=== PATIENT | female | born 1945 | race Caucasian/White ===

== ENCOUNTER 2017-04-03 06:33 | Inpatient (IN) | payer MEDICARE, OTHER ==
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
[2017-04-03] MEDS ORDERED: MORPHINE SULFATE 2 MG/ML DISP.SYRIN IV ONE (06:54)
[2017-04-03] MEDS ORDERED: MORPHINE SULFATE 2 MG/ML DISP.SYRIN ONE (07:01)
[2017-04-03] MEDS ORDERED: ceFAZolin SODIUM 1 GM VIAL IV PRN (09:07)
--- NOTE | 2017-04-03 09:16 | CONS ---
[facility] - General Date of Service: 04/03/17 Narrative: Mrs. Lopez is a 71-year-old female who was getting off the couch when she stumbled and fell resulting in an injury to her left hip. She was seen at an outside emergency department and transferred to her hospital for further care secondary to the lack of orthopedic coverage at the outside hospital. She is found to have a displaced comminuted left proximal femur fracture. She lives with her and is otherwise active and healthy community ambulator. She has a history of a right femoral neck fracture treated with percutaneous screw fixation for which she did well. She denies any other areas of pain. She denies any family or personal history of problems with anesthesia or blood clots. Source: patient Exam Limitations: no limitations - History of Present Illness Timing/Duration: 4-6 hours Severity: moderate Modifying Factors - (Worsens): Reports: movement Modifying Factors - (Improves): Reports: immobilization, medication Associated Symptoms: denies symptoms Allergies/Adverse Reactions: Allergies Sulfa (Sulfonamide Antibiotics) Allergy (Intermediate, Verified 04/03/17 06:58) Hives strawberry Adverse Reaction (Severe, Verified 04/03/17 06:58) Hives Home Medications: Home Medications Medication Instructions Recorded Last Taken ALPRAZolam [Xanax] 0.5 mg PO BID PRN 04/03/17 Unknown Aspirin [Aspir-Low] 81 mg PO DAILY 04/03/17 Unknown Gabapentin [Neurontin] 400 mg PO TID 04/03/17 Unknown Lisinopril [Zestril] 30 mg PO DAILY 04/03/17 Unknown Metoprolol Succinate [Toprol Xl] 50 mg PO DAILY 04/03/17 Unknown Simvastatin 20 mg PO DAILY 04/03/17 Unknown metFORMIN HCL [Metformin HCl ER] 1,000 mg PO BID 04/03/17 Unknown - Patient's Past Medical History Patient History - Medical: Diabetes Type 2, Renal Failure Patient History - Cardiac/Respiratory: Hypertension, Hyperlipidemia Patient History - Cancer: No Hx of Cancer Patient History - Surgical Procedures: Total Hip Replacement, Hernia Repair Patient History - Other: None - Family History Family History:: no untoward family reactions to anesthesia, no family history of clotting disorders - Social History Living Situations: home Psych History: Hx of Anxiety Smoking Status: Never smoker Have you smoked in the past 12 months: No Do you dip or chew tobacco: No Alcohol Use: none Drug Use: none - Immunizations Immunizations Up to Date: Yes History of Influenza Vaccine: Yes Review of Systems - Review of Systems Narrative: Negative except for above Physical Examination - Exam Narrative: She is alert and oriented 3. Normocephalic atraumatic Left lower extremity: No lacerations, ecchymosis, or abrasions over the hip. Her hip is flexed on a pillow and has pain with any hip range of motion. She has no pain with knee or ankle palpation or gentle range of motion. She does report chronic peripheral neuropathy secondary to diabetes and has decreased sensation to her foot. Palpable dorsalis pedis pulse. Vital Signs: Vital Signs - Last Taken Temp 36.7 C 04/03/17 06:47 Pulse 85 04/03/17 07:37 Resp 17 04/03/17 07:37 BP 135/70 04/03/17 07:37 Pulse Ox 96 04/03/17 07:37 O2 Oxygen Delivery Method Room Air - Results and Findings: Narrative: Outside pelvis and hip films from [facility] scanned into our computer: Comminuted peritrochanteric left femur fracture with displacement. Right hip with 3 partially threaded screws. No other signs of fracture about the hip or pelvis - Assessments/Findings (1) Fracture, proximal femur Diagnosis(s): We discussed the risks and benefits of surgery. The plan is for open versus closed reduction and several medullary fixation of the left femur. She'll need 6 weeks of postoperative DVT prophylaxis. Most likely she will be partial weightbearing and S1 in a walker for ambulation. She will receive IV Ancef preoperatively. Guerrero catheter was placed preoperatively. Problem: Acute Qualifiers: Encounter type: initial encounter Fracture type: closed Laterality: left Qualified Code(s): S72.002A - Fracture of unspecified part of neck of left femur, initial encounter for closed fracture
[2017-04-03] MEDS: MORPHINE SULFATE 4 MG/ML SYRG IV PRN (09:34)
--- NOTE | 2017-04-03 10:16 | HP ---
Chief Complaint - Chief Complaint Date of Service: 04/03/17 Time of Service: 09:00 Chief Complaint: Left Hip Pain History of Present Illness: Raquel is a 71 yo female with controlled diabetes mellitus Type II and chronic kidney disease stage III. She reports falling after getting out of the chair too quickly this morning and was unaware that her leg had "fallen asleep" . She fell and subsequently had left hip pain. She was evaluated at [facility] and found to have a left hip fracture. She had bloodwork, which I have reviewed, showing no significant abnormalities. Creatinine is 1.1. She reports only left hip pain. She has no other symptoms or concerns. She reports prior to this injury she had no medical concerns. She reports only recently medical problem with hernia surgery in October. She has not had problems with anesthesia. - Patient's Past Medical History Patient History - Medical: Diabetes Type 2, Renal Failure - CKD III Patient History - Cardiac/Respiratory: Hypertension, Hyperlipidemia Patient History - Cancer: No Hx of Cancer Patient History - Surgical Procedures: Total Hip Replacement - Right, Hernia Repair Patient History - Other: None - Family History Family History:: no untoward family reactions to anesthesia, no family history of clotting disorders - Social History Living Situations: spouse Abuse History: No History of abuse Psych History: Hx of Anxiety Smoking Status: Former smoker Have you smoked in the past 12 months: No Do you dip or chew tobacco: No Patient requests Smoking Cessation Consult: No Initiate information on Smoking Cessation: No Alcohol Use: none Drug Use: none - Immunizations Immunizations Up to Date: Yes History of Influenza Vaccine: Yes Review Of Systems (GEN) - Review of Systems Generalized/Overall Review: Present: No Symptoms Reported EENTM: Present: No Symptoms Reported Respiratory: Present: No Symptoms Reported Cardiac: Present: No Symptoms Reported Abdominal: Present: No Symptoms Reported Genitourinary: Present: No Symptoms Reported Musculoskeletal: Present: Joint Pain - Left Hip Pain Neurological: Present: No Symptoms Reported Skin: Present: No Symptoms Reported Immunizations: IMMUNIZATION HX Immunizations Up to Date Yes History of Influenza Vaccine Yes Allergies/Adverse Reactions: Allergies Allergy/AdvReac Type Severity Reaction Status Date / Time Sulfa (Sulfonamide Allergy Intermediate Hives Verified 04/03/17 09:39 Antibiotics) strawberry AdvReac Severe Hives Verified 04/03/17 09:39 Home Medications: HOME MEDICATIONS ALPRAZolam [Xanax] 0.5 mg PO BID PRN 04/03/17 [Last Taken Unknown] Aspirin [Aspir-Low] 81 mg PO DAILY 04/03/17 [Last Taken Unknown] Gabapentin [Neurontin] 400 mg PO TID 04/03/17 [Last Taken Unknown] Lisinopril [Zestril] 30 mg PO DAILY 04/03/17 [Last Taken Unknown] Metoprolol Succinate [Toprol Xl] 50 mg PO DAILY 04/03/17 [Last Taken 04/02/17 08 :00] Simvastatin 20 mg PO DAILY 04/03/17 [Last Taken Unknown] metFORMIN HCL [Metformin HCl ER] 1,000 mg PO BID 04/03/17 [Last Taken Unknown] Exam - Exam Vital Signs: Vital Signs - Last Taken Temp 36.6 C 04/03/17 09:41 Pulse 75 04/03/17 09:41 Resp 18 04/03/17 09:41 BP 157/85 04/03/17 09:41 Pulse Ox 94 04/03/17 09:41 Constitutional: Present: Alert, Oriented x3, Cooperative ENT Exam: Present: hearing grossly normal Eye Exam: bilateral eye: normal inspection Respiratory: Present: lungs clear, normal breath sounds Cardiovascular/Chest: Present: regular rate, rhythm, no murmur Abdomen: Present: Normal bowel sounds, soft, nontender, nondistended Skin Exam: Present: normal color, warm/dry, no cyanosis Appearance: Present: appropriate appearance, appropriate insight Eye contact: Present: cooperative, good eye contact, normal speech Thoughts: Present: normal thought pattern, no apparent hallucination Assessment/Plan - Narrative Narrative: Raquel is a 71 yo female admitted with Left hip fracture. Orthopedics have been consulted and plan for surgery today. Bloodwork reviewed shows no significant concerns. Will evaluate with ECG due to fall and pre op clearance. ECG was obtained and shows no acute concerns. Patient is medically cleared for surgery. Revised cardiac risk index evaluation gives <0.4% risk of cardiovascular event with surgery. Will follow along medically. - Assessment/Plan (1) Fracture of left hip Problem: Acute Qualifiers: Encounter type: initial encounter Fracture type: closed Qualified Code(s) : S72.002A - Fracture of unspecified part of neck of left femur, initial encounter for closed fracture (2) CKD (chronic kidney disease) stage 3, GFR 30-59 ml/min Problem: Acute (3) Diabetes mellitus type 2 in nonobese Problem: Acute
[2017-04-03] MEDS: RINGER'S SOLUTION,LACTATED 1,000 ML IV PRN ×3 (10:21→20:17)
[2017-04-03] MEDS ORDERED: METOPROLOL SUCCINATE 50 MG TABLET.SA PO ONE (10:42)
[2017-04-03] MEDS ORDERED: RINGER'S SOLUTION,LACTATED 1,000 ML IV ONE ×2 (11:20→12:40)
[2017-04-03] MEDS ORDERED: diphenhydrAMINE HCL 50 MG/ML VIAL IV PRN (12:50)
[2017-04-03] MEDS ORDERED: PROMETHAZINE HCL 5 MG in DEXTROSE 5 % IN WATER 50 ML IV PRN ×2 (12:50)
[2017-04-03] MEDS ORDERED: ONDANSETRON HCL/PF 2 MG/ML VIAL IV PRN (12:50)
[2017-04-03] MEDS ORDERED: MAG HYDROX/ALUMINUM HYD/SIMETH 30 ML UDC PO PRN (12:50)
[2017-04-03] MEDS ORDERED: ZOLPIDEM TARTRATE 5 MG TABLET PO PRN (12:50)
[2017-04-03] MEDS ORDERED: MAGNESIUM HYDROXIDE 30 ML UDC PO PRN (12:50)
--- NOTE | 2017-04-03 12:55 | OR ---
Operative Report - Dictated Report Narrative: Date: 04/03/2017 Surgeon: Chava Wilson M.D. Break Out Worker: Too Brock PA-C Preoperative diagnosis: Closed left aureliano-trochanteric femur fracture Postoperative diagnosis: Closed left aureliano-trochanteric femur fracture Operations and procedures: 1. Closed reduction, cephalo-medullary fixation left aureliano-trochanteric femur fracture 2. Intraoperative interpretation of radiographs Anesthesia: Spinal Specimens: None Estimated blood loss: 150 Milliliters Retained implants: [employer] Trigen InterTAN 130 degree size 10 mm by 36 centimeter nail with 90 millimeter lag screw and 85 millimeter compression screw , with distal locking screws Complications: None Indications for procedure: Mrs. Lopez is a 71-year-old female who injured the left leg after ground- level fall at home. They were admitted to the hospital after being evaluated in the emergency department. Once the medical provider felt that they were stable for surgical treatment, the risks and benefits alternatives were discussed. The risks of , blood clots, bleeding, infection, nerve/tendon/ blood vessel injury, malunion, nonunion, failure of implants, painful implants, arthrosis, and need for additional procedures were discussed. The extremity was marked and consent was obtained on the floor. Procedure: After marking the operative extremity on the floor, the patient was taken to the operating room. A timeout was performed. IV antibiotics consisting of Ancef were administered. A spinal anesthetic was induced by anesthesia, and the patient was then placed onto a fracture table with a well-padded perineal post. The nonoperative leg was placed in a well-padded traction boot in slight extension without any traction with an SCD on the leg. The operative leg was placed in a well-padded traction boot. Longitudinal traction, internal rotation , and flexion were utilized in order to reduce the fracture. Preliminary images were attained utilizing C-arm in both the AP and lateral views. This confirmed that we had obtained adequate visualization of the fracture as well as reduction. Next the hip was then prepped and draped in a standard sterile fashion. Next the guidewire was placed percutaneously proximal to the greater trochanter to brennon a starting point at the tip of the greater trochanter centered on the lateral view. This was passed down to the level below the lesser trochanter. A scalpel was utilized in order to dissect down to the greater trochanter in order to place the soft tissue protector down to bone. The entry drill was then placed down the proximal femur to the level of the lesser trochanter. A ball spike pusher was utilized in order to hold the greater trochanter as there is a longitudinal split down the intertrochanteric line as well as a subtrochanteric fracture. Next guidewire was placed into the distal femur confirming this on AP and lateral views with the C-arm. A series of reamers up to 11 was utilized with good chatter while holding the fracture reduced. The proper size nail was then selected and impacted into place. The outrigger was utilized in order to confirm the appropriate depth of the nail. Using the alignment device on the outrigger, a keyonna incision was made over the lateral femur. Sharp dissection was carried through the iliotibial band down to the proximal femur. The ball split pusher was used again in order to hold and maintain the lateral cortical fragment in the subtrochanteric region. The guidewire was was placed into the femoral head in a center-center position on AP and lateral views. The tip-apex distance of less than 25 mm combined was obtained. Once we felt that we had placed a guidewire in the appropriate position, it was measured. Next the compression screw site was drilled through the lateral femoral cortex. This was then drilled down to the appropriate depth , again confirming that we are within the confines the bone. The derotational bar was then placed and the lag screw was drilled. The lag screw was then secured in place seating fully ensuring that we were within the confines of the bone. The compression screw was then inserted allowing for compression while releasing the traction on the leg. This stabilized and reduced the subtrochanteric lateral cortical fragment. Using C- arm this was visualized to allow for compression across the fracture site. Once is felt that we had adequately stabilized the aureliano-trochanteric fracture, the distal interlocking screws were placed in a dynamic position. Using C-arm for placement. They were confirmed to be the appropriate length and within the nail on both AP and lateral views. The nail was secured in a static position and the outrigger was removed. The wounds were then thoroughly irrigated. Final images were obtained. The hip was placed through range of motion and showed no crepitance. The deep fascia was closed with 0 Vicryl, the subcutaneous tissue with 3-0 Vicryl, and the skin was closed with valerio. Sterile dressings of Xeroform, 4 x 4, ABD, and tape were applied. All sponge, sharp, and instrument counts were correct prior to closing the wounds. The patient was then awoken and transferred to the postanesthesia care unit in stable condition.
[2017-04-03] MEDS: ceFAZolin SODIUM 1 GM in DEXTROSE 5 % IN WATER 100 ML IV SCH ×4 (15:41→20:18)
[2017-04-03] MEDS: oxyCODONE HCL/ACETAMINOPHEN 1 TAB TABLET PO PRN (16:44)
[2017-04-03 17:14] LABS: Prothrombin Time (Patient) 11.3 Seconds (9.4-11.4)
[2017-04-03 17:16] LABS: INR 1.09 INR (0.90-1.10)
[2017-04-03] MEDS: WARFARIN SODIUM 5 MG TABLET PO SCH (17:26)
[2017-04-03] MEDS: INSULIN LISPRO 100 UNITS/ML VIAL SC SCH (17:50)
[2017-04-03] MEDS: HYDROmorphone HCL 1 MG/ML DISP.SYRIN IV PRN ×2 (18:32→21:13)
[2017-04-03] MEDS: SENNOSIDES/DOCUSATE SODIUM 1 TAB TABLET PO SCH (20:18)
[2017-04-04] MEDS: oxyCODONE HCL/ACETAMINOPHEN 1 TAB TABLET PO PRN ×2 (00:07→05:14)
[2017-04-04] MEDS: HYDROmorphone HCL 1 MG/ML DISP.SYRIN IV PRN ×2 (01:41→10:58)
[2017-04-04] MEDS: ceFAZolin SODIUM 1 GM in DEXTROSE 5 % IN WATER 100 ML IV SCH ×2 (02:02)
[2017-04-04] MEDS: MORPHINE SULFATE 4 MG/ML SYRG IV PRN ×2 (03:36→06:31)
[2017-04-04 06:00] LABS: Mean Cell Volume 99.1 fl (78-100); Mean Corpuscular Hemoglobin 31.7 pg (27-31); Mean Platelet Volume 9.6 fl (6.0-9.5); Platelet Count 193 K/mm3 (150-450); Red Blood Count 2.24 M/mm3 (4.2-5.4); Red Cell Distribution Width 12.6 % (11.5-14.0); White Blood Count 5.6 K/mm3 (4.0-10.5)
[2017-04-04 06:06] LABS: Hematocrit 22.2 % (37.0-47.0); Hemoglobin 7.1 gm/dL (12.5-16.0)
[2017-04-04 06:30] LABS: INR 1.12 INR (0.90-1.10); Prothrombin Time (Patient) 11.6 Seconds (9.4-11.4)
[2017-04-04 06:32] LABS: Anion Gap 10.2 mmol/L (6.8-13.8); BUN/Creatinine Ratio 10.9 (9.0-21.6); Calcium * 8.4 mg/dL (7.9-10.9); Carbon Dioxide 30.1 mmol/L (24-32.6); Estimated Creat Clear 39.9; Potassium 4.3 mmol/L (3.4-4.6)
[2017-04-04] MEDS: INSULIN LISPRO 100 UNITS/ML VIAL SC SCH ×3 (06:52→17:39)
--- NOTE | 2017-04-04 08:06 | PN ---
Subjective - Date and Time Seen Date: 04/04/17 Time: 08:04 Subjective Narrative: Subjective: Reports significant pain. Was able to get to the chair with therapy. Pain is not well-controlled. Voiding without any complications. Tolerating by mouth intake. Denies any nausea or vomiting. Denies calf pain. Physical exam: Alert and oriented to person, place and time Left lower Extremity: Palpable dorsalis pedis pulse. Sensation grossly intact to light touch. Dressings clean and dry. Able to flex and extend ankle and toes. No excessive drainage. Calf and thigh are soft. Assessment: Postop day 1 status post left femur intramedullary fixation of peritrochanteric femur fracture. Plan: Continue with physical and occupational therapy 25% weightbearing. Continue with anticoagulation -she will need 6 weeks of anticoagulation for DVT prophylaxis. 24 hours postoperative prophylactic antibiotics. Pain control with goal to rely on oral medications. Continue bowel regimen. Will need 6 weeks with walker or assitive device to protect joint while ambulating during the recovery process. Discontinue Guerrero catheter. She is notably anemic today and somewhat pale looking. There is a good chance her hemoglobin will drop additionally and thus I ordered 2 units packed red blood cells. Repeat labs in a.m. Objective - Vitals Vitals: Last Vital Signs Temp 37.0 C 04/04/17 06:34 Pulse 83 04/04/17 06:34 Resp 16 04/04/17 06:34 BP 144/66 04/04/17 06:34 Pulse Ox 96 04/04/17 06:34 - Abnormal Lab Findings Abnormal Lab Findings: Abnormal Lab Results 04/04/17 04/04/17 04/04/17 Range/Units 05:55 05:55 05:55 RBC 2.24 L (4.2-5.4) M/mm3 Hgb 7.1 L* (12.5-16.0) gm/dL Hct 22.2 L* (37.0-47.0) % MCH 31.7 H (27-31) pg MPV 9.6 H (6.0-9.5) fl PT 11.6 H (9.4-11.4) Seconds INR (Anticoag Therapy) 1.12 H (0.90-1.10) INR Est GFR (Non-Af Amer) 52 L (60-130) mL/min Random Glucose 196 H (70-110) mg/dL Cauti Physician Documentation - Urinary Catheter Management Urethral (Guerrero) Date of Insertion: 04/03/17 Time of Insertion: 08:20 Date of Removal: 04/04/17 Time of Removal: 06:30 Assessment/Plan - Problems/Diagnosis (1) Fracture, proximal femur Problem: Acute Qualifiers: Encounter type: subsequent encounter Fracture type: closed Laterality: left Fracture healing: with routine healing Qualified Code(s): S72.002D - Fracture of unspecified part of neck of left femur, subsequent encounter for closed fracture with routine healing
[2017-04-04] MEDS: MORPHINE SULFATE 15 MG TABLET.SA PO SCH ×2 (08:19→21:10)
[2017-04-04] MEDS: ENOXAPARIN SODIUM 40 MG/0.4 ML SYRG SC SCH (11:10)
[2017-04-04 17:21] LABS: Hematocrit 36.5 % (37.0-47.0); Hemoglobin 11.9 gm/dL (12.5-16.0); Mean Cell Volume 95.8 fl (78-100); Mean Corpuscular Hemoglobin 31.2 pg (27-31); Mean Corpuscular Hgb Conc 32.6 g/dl (32-36); Mean Platelet Volume 9.7 fl (6.0-9.5); Neutrophil # 4.8 K/mm3 (1.3-6.0); Neutrophil % 68.4 % (42-75.0); Platelet Count 181 K/mm3 (150-450); Red Blood Count 3.81 M/mm3 (4.2-5.4); Red Cell Distribution Width 14.7 % (11.5-14.0); White Blood Count 7.1 K/mm3 (4.0-10.5)
[2017-04-04 17:43] LABS: Albumin * 3.1 gm/dl (3.4-5.0); Anion Gap 13.6 mmol/L (6.8-13.8); BUN/Creatinine Ratio 12.6 (9.0-21.6); Bilirubin, Total 0.7 mg/dL (0.0-1.1); Ca. Corrected For Albumin 9.2 mg/dL (8.4-10.2); Calcium * 8.8 mg/dL (7.9-10.9); Carbon Dioxide 27.1 mmol/L (24-32.6); Potassium 4.7 mmol/L (3.4-4.6); Troponin I 0.04 ng/ml (0.00-0.10)
[2017-04-04] MEDS ORDERED: METOPROLOL TARTRATE 1 MG/ML AMPUL IV ONE (19:00)
[2017-04-04] MEDS ORDERED: LORazepam 2 MG/ML DISP.SYRIN IM ONE (19:57)
[2017-04-04] MEDS ORDERED: LORazepam 2 MG/ML DISP.SYRIN ONE (20:31)
[2017-04-04] MEDS ORDERED: METOPROLOL TARTRATE 25 MG TABLET ONE (20:31)
[2017-04-04] MEDS: METOPROLOL TARTRATE 25 MG TABLET PO SCH (20:35)
[2017-04-04] MEDS: WARFARIN SODIUM 5 MG TABLET PO SCH (20:38)
[2017-04-04] MEDS: SENNOSIDES/DOCUSATE SODIUM 1 TAB TABLET PO SCH (20:57)
[2017-04-04 21:49] LABS: Urine Bilirubin Negative (NEGATIVE); Urine Blood 50 /ul (NEGATIVE); Urine Ketone Negative (NEGATIVE); Urine Nitrite Negative (NEGATIVE); Urine Protein Negative (NEGATIVE); Urine Urobilinogen Normal (NORMAL)
[2017-04-04 21:58] LABS: Urine Appearance Clear; Urine Bacteria 1+; Urine Color Yellow; Urine WBC None Seen /hpf (0-5)
--- NOTE | 2017-04-04 23:55 | PN ---
Subjective - Date and Time Seen Date: 04/04/17 Time: 16:50 Subjective Narrative: Nursing reported confusion, dilirium, and difficulty communicating. Patient was evaluated and was not speaking appropriately. She had no slurred speech or focal neurological musculoskeletal change, but did have difficulty with appropriate words. Speech consisted of random words and did not follow syntax. She did not follow commands but did have spontaneous movement of all extremities and opened eyes and turned head. Objective - Vitals Vitals: Last Vital Signs Temp 37.1 C 04/04/17 16:37 Pulse 103 H 04/04/17 20:35 Resp 18 04/04/17 19:13 BP 179/100 04/04/17 20:35 Pulse Ox 100 04/04/17 19:13 - Abnormal Lab Findings Abnormal Lab Findings: Abnormal Lab Results 04/04/17 04/04/17 04/04/17 Range/Units 05:55 05:55 05:55 RBC 2.24 L (4.2-5.4) M/mm3 Hgb 7.1 L* (12.5-16.0) gm/dL Hct 22.2 L* (37.0-47.0) % MCH 31.7 H (27-31) pg RDW (11.5-14.0) % MPV 9.6 H (6.0-9.5) fl Immature Gran % (Auto) (0.001-0.429) % Immature Gran # (Auto) (0.000-0.0310) K/mm3 Lymphocytes % (20-51) % Monocytes % (0.0-9) % Lymphocytes # (1.5-3.5) k/mm3 PT 11.6 H (9.4-11.4) Seconds INR (Anticoag Therapy) 1.12 H (0.90-1.10) INR Potassium (3.4-4.6) mmol/L Est GFR (Non-Af Amer) 52 L (60-130) mL/min Random Glucose 196 H (70-110) mg/dL ALT (19-67) U/L Alkaline Phosphatase (50-170) U/L Total Protein (6.2-8.2) gm/dL Albumin (3.4-5.0) gm/dl Urine Blood (NEGATIVE) /ul Urine RBC (0-5) /hpf Urine Bacteria (NONE) Crossmatch 04/04/17 04/04/17 04/04/17 Range/Units 08:20 17:15 17:15 RBC 3.81 L (4.2-5.4) M/mm3 Hgb 11.9 L (12.5-16.0) gm/dL Hct 36.5 L (37.0-47.0) % MCH 31.2 H (27-31) pg RDW 14.7 H (11.5-14.0) % MPV 9.7 H (6.0-9.5) fl Immature Gran % (Auto) 1.10 H (0.001-0.429) % Immature Gran # (Auto) 0.08 H (0.000-0.0310) K/mm3 Lymphocytes % 17.7 L (20-51) % Monocytes % 11.6 H (0.0-9) % Lymphocytes # 1.3 L (1.5-3.5) k/mm3 PT (9.4-11.4) Seconds INR (Anticoag Therapy) (0.90-1.10) INR Potassium 4.7 H (3.4-4.6) mmol/L Est GFR (Non-Af Amer) (60-130) mL/min Random Glucose 139 H (70-110) mg/dL ALT 12 L (19-67) U/L Alkaline Phosphatase 42 L (50-170) U/L Total Protein 6.0 L (6.2-8.2) gm/dL Albumin 3.1 L (3.4-5.0) gm/dl Urine Blood (NEGATIVE) /ul Urine RBC (0-5) /hpf Urine Bacteria (NONE) Crossmatch See Detail 04/04/17 Range/Units 21:15 RBC (4.2-5.4) M/mm3 Hgb (12.5-16.0) gm/dL Hct (37.0-47.0) % MCH (27-31) pg RDW (11.5-14.0) % MPV (6.0-9.5) fl Immature Gran % (Auto) (0.001-0.429) % Immature Gran # (Auto) (0.000-0.0310) K/mm3 Lymphocytes % (20-51) % Monocytes % (0.0-9) % Lymphocytes # (1.5-3.5) k/mm3 PT (9.4-11.4) Seconds INR (Anticoag Therapy) (0.90-1.10) INR Potassium (3.4-4.6) mmol/L Est GFR (Non-Af Amer) (60-130) mL/min Random Glucose (70-110) mg/dL ALT (19-67) U/L Alkaline Phosphatase (50-170) U/L Total Protein (6.2-8.2) gm/dL Albumin (3.4-5.0) gm/dl Urine Blood 50 H (NEGATIVE) /ul Urine RBC 10-25 H (0-5) /hpf Urine Bacteria 1+ H (NONE) Crossmatch - Exam Constitutional: Present: Alert, Other - oriented x 0 with inappropriate speech. Some speech was not understandable and other words appeared at random. Neck: Present: full range of motion Respiratory: Present: lungs clear, normal breath sounds Cardiovascular/Chest: Present: no murmur, tachycardia Abdomen: Present: Normal bowel sounds, soft, nontender, nondistended Neurologic: Present: other - Moved eyes, head, and all extremities spontaneously. Unable to follow commands. No focal motor loss, no slurred speech, no facial droop. Cauti Physician Documentation - Urinary Catheter Management Urethral (Guerrero) Date of Insertion: 04/03/17 Time of Insertion: 08:20 Date of Removal: 04/04/17 Time of Removal: 06:30 Assessment/Plan - Problems/Diagnosis (1) Delirium Problem: Acute Narrative: New onset dilirium. Will obtain CBC, CMP, troponin, EKG, and Head CT stat. Diagnostics were reviewed and within normal limits. Suspect delirium is a side effect of medications, likely narcotics. Patient with low pain tolerance and has requested prn narcotics often. Believe this had accumulated and caused her delirium. She is aggitated and this has caused tachycardia and hypertension. She has no hypoxia, therefore I do not believe given narcan is warranted. (2) Fracture of left hip Problem: Acute Qualifiers: Encounter type: initial encounter Fracture type: closed Qualified Code(s) : S72.002A - Fracture of unspecified part of neck of left femur, initial encounter for closed fracture (3) CKD (chronic kidney disease) stage 3, GFR 30-59 ml/min Problem: Chronic (4) Diabetes mellitus type 2 in nonobese Problem: Acute (5) Accelerated hypertension Problem: Acute Narrative: Significant hypertension with systolic >180. Tachycardic up to 120. Will give IV metoprolol and consider starting oral metoprolol if needed. Suspect hypertension from agitation of her delirium, although consider hypertensive encephalopathy. However I believe delirium started before blood pressures maged significantly.
[2017-04-05] MEDS ORDERED: LORazepam 2 MG/ML DISP.SYRIN IV ONE (01:03)
[2017-04-05] MEDS: METOPROLOL TARTRATE 25 MG TABLET PO SCH ×4 (01:32→20:00)
[2017-04-05 05:59] LABS: Hemoglobin 10.9 gm/dL (12.5-16.0); Mean Cell Volume 91.2 fl (78-100); Mean Corpuscular Hemoglobin 31.1 pg (27-31); Mean Corpuscular Hgb Conc 34.1 g/dl (32-36); Mean Platelet Volume 9.4 fl (6.0-9.5); Platelet Count 192 K/mm3 (150-450); Red Blood Count 3.51 M/mm3 (4.2-5.4); Red Cell Distribution Width 14.4 % (11.5-14.0); White Blood Count 7.8 K/mm3 (4.0-10.5)
[2017-04-05 06:05] LABS: Prothrombin Time (Patient) 13.5 Seconds (9.4-11.4)
[2017-04-05 06:08] LABS: Anion Gap 11.6 mmol/L (6.8-13.8); BUN/Creatinine Ratio 10.9 (9.0-21.6); Calcium * 8.8 mg/dL (7.9-10.9); Carbon Dioxide 28.5 mmol/L (24-32.6); Estimated Creat Clear 47.7; Potassium 4.1 mmol/L (3.4-4.6)
[2017-04-05 06:33] LABS: INR 1.3 INR (0.90-1.10)
--- NOTE | 2017-04-05 06:37 | PN ---
Subjective - Date and Time Seen Date: 04/05/17 Time: :17 Subjective Narrative: Pt examined this am. Says she is 'hurting everywhere.' Remains disoriented to place time & events. Became delirious & restless in the night and required Ativan x 2 to calm down her behaviour. Nursing reported urinary retention and therefore required stover after straight cath x 2. BP and HR improved with metoprolol. Objective - Vitals Vitals: Last Vital Signs Temp 38.2 C H 04/05/17 02:00 Pulse 90 04/05/17 03:50 Resp 21 H 04/05/17 02:00 BP 169/62 04/05/17 02:00 Pulse Ox 99 04/05/17 02:00 - Abnormal Lab Findings Abnormal Lab Findings: Abnormal Lab Results 04/04/17 04/04/17 04/04/17 Range/Units 05:55 05:55 08:20 RBC (4.2-5.4) M/mm3 Hgb (12.5-16.0) gm/dL Hct (37.0-47.0) % MCH (27-31) pg RDW (11.5-14.0) % MPV (6.0-9.5) fl Immature Gran % (Auto) (0.001-0.429) % Immature Gran # (Auto) (0.000-0.0310) K/mm3 Lymphocytes % (20-51) % Monocytes % (0.0-9) % Lymphocytes # (1.5-3.5) k/mm3 PT 11.6 H (9.4-11.4) Seconds INR (Anticoag Therapy) 1.12 H (0.90-1.10) INR Potassium (3.4-4.6) mmol/L Est GFR (Non-Af Amer) 52 L (60-130) mL/min Random Glucose 196 H (70-110) mg/dL ALT (19-67) U/L Alkaline Phosphatase (50-170) U/L Total Protein (6.2-8.2) gm/dL Albumin (3.4-5.0) gm/dl Urine Blood (NEGATIVE) /ul Urine RBC (0-5) /hpf Urine Bacteria (NONE) Crossmatch See Detail 04/04/17 04/04/17 04/04/17 Range/Units 17:15 17:15 21:15 RBC 3.81 L (4.2-5.4) M/mm3 Hgb 11.9 L (12.5-16.0) gm/dL Hct 36.5 L (37.0-47.0) % MCH 31.2 H (27-31) pg RDW 14.7 H (11.5-14.0) % MPV 9.7 H (6.0-9.5) fl Immature Gran % (Auto) 1.10 H (0.001-0.429) % Immature Gran # (Auto) 0.08 H (0.000-0.0310) K/mm3 Lymphocytes % 17.7 L (20-51) % Monocytes % 11.6 H (0.0-9) % Lymphocytes # 1.3 L (1.5-3.5) k/mm3 PT (9.4-11.4) Seconds INR (Anticoag Therapy) (0.90-1.10) INR Potassium 4.7 H (3.4-4.6) mmol/L Est GFR (Non-Af Amer) (60-130) mL/min Random Glucose 139 H (70-110) mg/dL ALT 12 L (19-67) U/L Alkaline Phosphatase 42 L (50-170) U/L Total Protein 6.0 L (6.2-8.2) gm/dL Albumin 3.1 L (3.4-5.0) gm/dl Urine Blood 50 H (NEGATIVE) /ul Urine RBC 10-25 H (0-5) /hpf Urine Bacteria 1+ H (NONE) Crossmatch 04/05/17 04/05/17 Range/Units 05:50 05:50 RBC 3.51 L (4.2-5.4) M/mm3 Hgb 10.9 L (12.5-16.0) gm/dL Hct 32.0 L (37.0-47.0) % MCH 31.1 H (27-31) pg RDW 14.4 H (11.5-14.0) % MPV (6.0-9.5) fl Immature Gran % (Auto) (0.001-0.429) % Immature Gran # (Auto) (0.000-0.0310) K/mm3 Lymphocytes % (20-51) % Monocytes % (0.0-9) % Lymphocytes # (1.5-3.5) k/mm3 PT (9.4-11.4) Seconds INR (Anticoag Therapy) (0.90-1.10) INR Potassium (3.4-4.6) mmol/L Est GFR (Non-Af Amer) (60-130) mL/min Random Glucose 182 H D (70-110) mg/dL ALT (19-67) U/L Alkaline Phosphatase (50-170) U/L Total Protein (6.2-8.2) gm/dL Albumin (3.4-5.0) gm/dl Urine Blood (NEGATIVE) /ul Urine RBC (0-5) /hpf Urine Bacteria (NONE) Crossmatch - Exam Constitutional: Present: No distress, Other - disoriented x 3 ENT Exam: Present: normal ENT inspection Neck: Present: full range of motion, normal inspection Breasts: Present: Exam deferred Respiratory: Present: lungs clear, No rales Cardiovascular/Chest: Present: normal peripheral pulses, regular rate, rhythm, no edema, no murmur Abdomen: Present: Normal bowel sounds, soft, nontender /Rectal: Present: Other - Stover catheter. Extremity: Present: non-tender, no pedal edema, other Skin Exam: Present: warm/dry, no cyanosis, other - Left Hip. Surgical site. Lymphatic: Present: no adenopathy Neurologic: Present: alert, disoriented x 3 Appearance: Present: impaired insight Eye contact: Present: compulsive Thoughts: Present: incoherent Cauti Physician Documentation - Urinary Catheter Management Urethral (Stover) Date of Insertion: 04/05/17 Time of Insertion: 05:40 Date of Removal: 04/04/17 Time of Removal: 06:30 Assessment/Plan - Problems/Diagnosis (1) Fracture of left hip Problem: Acute Qualifiers: Encounter type: initial encounter Fracture type: closed Qualified Code(s) : S72.002A - Fracture of unspecified part of neck of left femur, initial encounter for closed fracture Narrative: POD # 2- Ortho following. Continue with their recommendations: PT/OT, Pain mgt, anticoagulation, bowel regimen. (2) Delirium Problem: Acute Narrative: Noted to have disorientation, and hyperactive behaviour- agitation & restlessness. No infection on UA. Electrolyte and renal function normal. CT of the head negative for CVA. Likely precipitated by Opiods, anaesthesia, or underlying dementia. Will limit the use of opiods. May consider Seroquel 25 mg daily and titrate up to 200mg q 12 h to reduce delirium duration. (3) Diabetes mellitus type 2 in nonobese Problem: Acute Narrative: Stable- Continue ACHS accucheck, Carb consistent diet,
[2017-04-05] MEDS: INSULIN LISPRO 100 UNITS/ML VIAL SC SCH ×3 (06:52→16:46)
[2017-04-05] MEDS: ENOXAPARIN SODIUM 40 MG/0.4 ML SYRG SC SCH (11:35)
--- NOTE | 2017-04-05 12:46 | PN ---
Subjective - Date and Time Seen Date: 04/05/17 Time: 12:44 Subjective Narrative: Subjective: Reports pain but no acute concerns. Increased pain meds yesterday and had more confusion/agitation. DCd MS contin. Was able to get to the chair with therapy. Guerrero replaced due to urinary retension. Tolerating by mouth intake. Denies any nausea or vomiting. Physical exam: Alert and oriented to person Left lower Extremity: Palpable dorsalis pedis pulse. Sensation grossly intact to light touch. Dressings clean and dry. Able to flex and extend ankle and toes. No excessive drainage. Calf and thigh are soft. Assessment: Postop day 2 status post left femur intramedullary fixation of peritrochanteric femur fracture. Plan: Continue with physical and occupational therapy 25% weightbearing. Continue with anticoagulation -she will need 6 weeks of anticoagulation for DVT prophylaxis. Pain control with goal to rely on oral medications. Continue bowel regimen. Will need 6 weeks with walker or assitive device to protect leg while ambulating during the recovery process. Change dressings today Objective - Vitals Vitals: Last Vital Signs Temp 36.7 C 04/05/17 11:20 Pulse 85 04/05/17 11:20 Resp 18 04/05/17 11:20 BP 162/89 04/05/17 11:20 Pulse Ox 95 04/05/17 11:20 - Abnormal Lab Findings Abnormal Lab Findings: Abnormal Lab Results 04/04/17 04/04/17 04/04/17 Range/Units 08:20 17:15 17:15 RBC 3.81 L (4.2-5.4) M/mm3 Hgb 11.9 L (12.5-16.0) gm/dL Hct 36.5 L (37.0-47.0) % MCH 31.2 H (27-31) pg RDW 14.7 H (11.5-14.0) % MPV 9.7 H (6.0-9.5) fl Immature Gran % (Auto) 1.10 H (0.001-0.429) % Immature Gran # (Auto) 0.08 H (0.000-0.0310) K/mm3 Lymphocytes % 17.7 L (20-51) % Monocytes % 11.6 H (0.0-9) % Lymphocytes # 1.3 L (1.5-3.5) k/mm3 PT (9.4-11.4) Seconds INR (Anticoag Therapy) (0.90-1.10) INR Potassium 4.7 H (3.4-4.6) mmol/L Random Glucose 139 H (70-110) mg/dL ALT 12 L (19-67) U/L Alkaline Phosphatase 42 L (50-170) U/L Total Protein 6.0 L (6.2-8.2) gm/dL Albumin 3.1 L (3.4-5.0) gm/dl Urine Blood (NEGATIVE) /ul Urine RBC (0-5) /hpf Urine Bacteria (NONE) Crossmatch See Detail 04/04/17 04/05/17 04/05/17 Range/Units 21:15 05:50 05:50 RBC 3.51 L (4.2-5.4) M/mm3 Hgb 10.9 L (12.5-16.0) gm/dL Hct 32.0 L (37.0-47.0) % MCH 31.1 H (27-31) pg RDW 14.4 H (11.5-14.0) % MPV (6.0-9.5) fl Immature Gran % (Auto) (0.001-0.429) % Immature Gran # (Auto) (0.000-0.0310) K/mm3 Lymphocytes % (20-51) % Monocytes % (0.0-9) % Lymphocytes # (1.5-3.5) k/mm3 PT (9.4-11.4) Seconds INR (Anticoag Therapy) (0.90-1.10) INR Potassium (3.4-4.6) mmol/L Random Glucose 182 H D (70-110) mg/dL ALT (19-67) U/L Alkaline Phosphatase (50-170) U/L Total Protein (6.2-8.2) gm/dL Albumin (3.4-5.0) gm/dl Urine Blood 50 H (NEGATIVE) /ul Urine RBC 10-25 H (0-5) /hpf Urine Bacteria 1+ H (NONE) Crossmatch 04/05/17 Range/Units 05:50 RBC (4.2-5.4) M/mm3 Hgb (12.5-16.0) gm/dL Hct (37.0-47.0) % MCH (27-31) pg RDW (11.5-14.0) % MPV (6.0-9.5) fl Immature Gran % (Auto) (0.001-0.429) % Immature Gran # (Auto) (0.000-0.0310) K/mm3 Lymphocytes % (20-51) % Monocytes % (0.0-9) % Lymphocytes # (1.5-3.5) k/mm3 PT 13.5 H (9.4-11.4) Seconds INR (Anticoag Therapy) 1.30 H (0.90-1.10) INR Potassium (3.4-4.6) mmol/L Random Glucose (70-110) mg/dL ALT (19-67) U/L Alkaline Phosphatase (50-170) U/L Total Protein (6.2-8.2) gm/dL Albumin (3.4-5.0) gm/dl Urine Blood (NEGATIVE) /ul Urine RBC (0-5) /hpf Urine Bacteria (NONE) Crossmatch Cauti Physician Documentation - Urinary Catheter Management Urethral (Guerrero) Date of Insertion: 04/05/17 Time of Insertion: 05:43 Date of Removal: 04/04/17 Time of Removal: 06:30 Assessment/Plan - Problems/Diagnosis (1) Fracture, proximal femur Problem: Acute Qualifiers: Encounter type: subsequent encounter Fracture type: closed Laterality: left Fracture healing: with routine healing Qualified Code(s): S72.002D - Fracture of unspecified part of neck of left femur, subsequent encounter for closed fracture with routine healing
[2017-04-05] MEDS: oxyCODONE HCL/ACETAMINOPHEN 1 TAB TABLET PO PRN (12:49)
[2017-04-05] MEDS: LORazepam 0.5 MG TABLET PO PRN ×2 (15:46→19:59)
[2017-04-05] MEDS: WARFARIN SODIUM 5 MG TABLET PO SCH (16:43)
[2017-04-05] MEDS: ACETAMINOPHEN 500 MG TABLET PO PRN (19:59)
[2017-04-05] MEDS: SENNOSIDES/DOCUSATE SODIUM 1 TAB TABLET PO SCH (20:00)
[2017-04-06] MEDS: METOPROLOL TARTRATE 25 MG TABLET PO SCH ×4 (01:19→18:59)
[2017-04-06] MEDS: ACETAMINOPHEN 500 MG TABLET PO PRN ×2 (04:16→19:57)
[2017-04-06 05:35] LABS: Prothrombin Time (Patient) 16.1 Seconds (9.4-11.4)
[2017-04-06 05:36] LABS: INR 1.55 INR (0.90-1.10)
--- NOTE | 2017-04-06 06:26 | PN ---
Subjective - Date and Time Seen Date: 04/06/17 Time: 06:22 Subjective Narrative: Pt examined this morning. Is resting comfortably. Nursing reports less confusion & restlessness. Required Ativan x 1 & APAP only. Guerrero catheter discontinued yesterday and is now voiding normally. Objective - Vitals Vitals: Last Vital Signs Temp 36.5 C 04/06/17 02:15 Pulse 90 04/06/17 02:15 Resp 22 H 04/06/17 02:15 BP 163/99 04/06/17 02:15 Pulse Ox 91 04/06/17 02:15 - Abnormal Lab Findings Abnormal Lab Findings: Abnormal Lab Results 04/05/17 04/06/17 Range/Units 05:50 05:00 PT 13.5 H 16.1 H (9.4-11.4) Seconds INR (Anticoag Therapy) 1.30 H 1.55 H (0.90-1.10) INR - Exam Constitutional: Present: Alert, Oriented x3, Cooperative, No distress ENT Exam: Present: normal ENT inspection Neck: Present: non-tender, full range of motion, supple Breasts: Present: Exam deferred Respiratory: Present: lungs clear, normal breath sounds Cardiovascular/Chest: Present: normal peripheral pulses, regular rate, rhythm, no chest tenderness, no murmur Abdomen: Present: Normal bowel sounds, soft, nontender /Rectal: Present: Exam deferred Extremity: Present: normal range of motion, non-tender, normal inspection Skin Exam: Present: warm/dry, no cyanosis Lymphatic: Present: no adenopathy Neurologic: Present: no motor/sensory deficits, alert, oriented x 3 Appearance: Present: appropriate insight Eye contact: Present: cooperative, good eye contact, normal speech Thoughts: Present: no apparent hallucination Cauti Physician Documentation - Urinary Catheter Management Urethral (Guerrero) Date of Insertion: 04/05/17 Time of Insertion: 05:43 Date of Removal: 04/05/17 Time of Removal: 16:00 Assessment/Plan - Problems/Diagnosis (1) Fracture of left hip Problem: Acute Qualifiers: Encounter type: initial encounter Fracture type: closed Qualified Code(s) : S72.002A - Fracture of unspecified part of neck of left femur, initial encounter for closed fracture Narrative: POD # 3- Ortho following. Continue with their recommendations: PT/OT, Pain mgt, anticoagulation, bowel regimen. (2) Delirium Problem: Acute Narrative: 04/06-Noted to have disorientation, and hyperactive behaviour- agitation & restlessness. No infection on UA. Electrolyte and renal function normal. CT of the head negative for CVA. Likely precipitated by Opiods, anaesthesia, or underlying dementia. Will limit the use of opiods. 04/07- Narcotics use limited. Her delirium is improving. Continue with Ativan PRN. (3) Diabetes mellitus type 2 in nonobese Problem: Acute Narrative: Stable- Continue ACHS accucheck, Carb consistent diet,
[2017-04-06] MEDS: INSULIN LISPRO 100 UNITS/ML VIAL SC SCH ×3 (07:04→16:43)
[2017-04-06] MEDS ORDERED: traMADol HCL 50 MG TABLET PO PRN (07:23)
[2017-04-06] MEDS ORDERED: traMADol HCL 50 MG TABLET PO ONE (10:16)
[2017-04-06] MEDS: LORazepam 0.5 MG TABLET PO PRN ×2 (10:31→18:57)
[2017-04-06] MEDS: ENOXAPARIN SODIUM 40 MG/0.4 ML SYRG SC SCH (11:43)
[2017-04-06] MEDS: traMADol HCL 50 MG TABLET PO PRN ×3 (14:50→22:58)
[2017-04-06] MEDS: WARFARIN SODIUM 5 MG TABLET PO SCH (16:44)
[2017-04-06] MEDS: SENNOSIDES/DOCUSATE SODIUM 1 TAB TABLET PO SCH (19:59)
[2017-04-07] MEDS: ACETAMINOPHEN 500 MG TABLET PO PRN ×4 (02:14→22:13)
[2017-04-07] MEDS: METOPROLOL TARTRATE 25 MG TABLET PO SCH ×4 (02:14→19:04)
--- NOTE | 2017-04-07 05:44 | PN ---
Subjective - Date and Time Seen Date: 04/07/17 Time: 05:40 Subjective Narrative: Ms. Mojica seen this am. Complains of headache. Pain on LT hip is well controlled with ultram. Mentation is back to normal. Voiding frequently now. Has not ambulated much. No other issues according to nursing. Objective - Vitals Vitals: Last Vital Signs Temp 36.6 C 04/07/17 02:42 Pulse 88 04/07/17 02:42 Resp 16 04/07/17 02:42 BP 155/91 04/07/17 02:42 Pulse Ox 97 04/07/17 02:42 - Exam Constitutional: Present: Alert, Oriented x3, Cooperative, No distress ENT Exam: Present: normal ENT inspection. Absent: nasal congestion, nasal drainage, dry mucous membranes Neck: Present: full range of motion, supple, normal inspection Breasts: Present: Exam deferred Respiratory: Present: lungs clear, no accessory muscle use Cardiovascular/Chest: Present: normal peripheral pulses, regular rate, rhythm, no murmur Abdomen: Present: Normal bowel sounds, soft, nontender /Rectal: Present: Exam deferred Extremity: Present: normal range of motion, non-tender, other - Surgical site on LT hip Skin Exam: Present: warm/dry, no cyanosis Lymphatic: Present: no adenopathy Neurologic: Present: no motor/sensory deficits, alert, normal mood/affect Appearance: Present: appropriate appearance, appropriate insight Eye contact: Present: cooperative, good eye contact, normal speech Cauti Physician Documentation - Urinary Catheter Management Urethral (Guerrero) Date of Insertion: 04/05/17 Time of Insertion: 05:43 Date of Removal: 04/05/17 Time of Removal: 16:00 Assessment/Plan - Problems/Diagnosis (1) Fracture of left hip Problem: Acute Qualifiers: Encounter type: initial encounter Fracture type: closed Qualified Code(s) : S72.002A - Fracture of unspecified part of neck of left femur, initial encounter for closed fracture Narrative: POD # 4- Ortho following. Continue with their recommendations: PT/OT, Pain mgt, anticoagulation, bowel regimen. (2) Delirium Problem: Acute Narrative: 04/05-Noted to have disorientation, and hyperactive behaviour- agitation & restlessness. No infection on UA. Electrolyte and renal function normal. CT of the head negative for CVA. Likely precipitated by Opiods, anaesthesia, or underlying dementia. Will limit the use of opiods. 04/06- Narcotics use limited. Her delirium is improving. Continue with Ativan PRN. 04/07- Mentation is clearer. No more restlessness & confusion, (3) Diabetes mellitus type 2 in nonobese Problem: Acute Narrative: Stable- Continue ACHS accucheck, Carb consistent diet,
[2017-04-07 06:18] LABS: Prothrombin Time (Patient) 20.6 Seconds (9.4-11.4)
[2017-04-07 06:38] LABS: INR 1.98 INR (0.90-1.10)
[2017-04-07] MEDS: INSULIN LISPRO 100 UNITS/ML VIAL SC SCH ×3 (07:20→16:26)
[2017-04-07] MEDS: traMADol HCL 50 MG TABLET PO PRN ×3 (07:21→19:04)
[2017-04-07] MEDS: LORazepam 0.5 MG TABLET PO PRN ×3 (08:19→22:13)
[2017-04-07] MEDS: ENOXAPARIN SODIUM 40 MG/0.4 ML SYRG SC SCH (11:36)
[2017-04-07] MEDS: ALPRAZolam 0.25 MG TABLET PO PRN ×2 (11:36→20:01)
[2017-04-07] MEDS: WARFARIN SODIUM 5 MG TABLET PO SCH (16:27)
[2017-04-07] MEDS: SENNOSIDES/DOCUSATE SODIUM 1 TAB TABLET PO SCH (20:01)
[2017-04-08] MEDS: traMADol HCL 50 MG TABLET PO PRN ×3 (00:15→13:05)
[2017-04-08] MEDS: METOPROLOL TARTRATE 25 MG TABLET PO SCH ×3 (02:23→13:05)
[2017-04-08] MEDS: LORazepam 0.5 MG TABLET PO PRN ×2 (02:23→08:35)
[2017-04-08 06:00] LABS: Prothrombin Time (Patient) 24.5 Seconds (9.4-11.4)
[2017-04-08 06:01] LABS: INR 2.36 INR (0.90-1.10)
[2017-04-08] MEDS: INSULIN LISPRO 100 UNITS/ML VIAL SC SCH ×2 (06:17→11:32)
[2017-04-08] MEDS: ACETAMINOPHEN 500 MG TABLET PO PRN (11:16)
[2017-04-08] MEDS: ALPRAZolam 0.25 MG TABLET PO PRN (11:16)
[2017-04-08] MEDS: ENOXAPARIN SODIUM 40 MG/0.4 ML SYRG SC SCH (11:17)
--- NOTE | 2017-04-08 13:02 | DS ---
(1) Fracture of left hip Problem: Acute Qualifiers: Encounter type: initial encounter Fracture type: closed Qualified Code(s) : S72.002A - Fracture of unspecified part of neck of left femur, initial encounter for closed fracture (2) Delirium Problem: Acute (3) CKD (chronic kidney disease) stage 3, GFR 30-59 ml/min Problem: Chronic (4) Diabetes mellitus type 2 in nonobese Problem: Acute (5) Accelerated hypertension Problem: Acute Description of Stay: Raquel was admitted for left hip fracture after she tripped and fell. She was admitted and medically cleared for surgery. Surgery was performed without incident. Following surgery she was disoriented and delusional. Work up indicated reaction to anesthesia vs pain medications. These were minimized and gradually her mentation improved. She improved but needed additional therapies. She was discharged to [facility] for further therapy. Procedures Performed: see notes below List Procedures: Left Hip Fracture Repair Discharge Disposition: Other HealthCare facility - [facility] Disposition: Other health care facility Condition: Good Discharge Activity: Partial-Weight bearing - 25% weight bearing to left leg Discharge Diet: Consistent carbs Discharge Level of Care:: [facility] Therapy: Physicial Therapy, Occupation Therapy Referrals: Chava Wilson MD [Staff Physician] - Two Weeks Problem Oriented Discharge Instructions to Patient/Family: Hypertension, Easy- to-Read, Hip Fracture Additional Patient Instructions (free text): PT/INR 04/10/17. LAB - Prothrombin Time 04/10/17 Coumadin for 6 weeks. 25% weight bearing to left leg. Use assisting device for ambulation. Follow up with Dr. Wilson 04/23 at 11:00 Prescriptions (Any new or edited meds): Acetaminophen [Tylenol] 1,000 mg PO Q6H PRN #120 tablet PRN Reason: Mild Pain ALPRAZolam [Xanax] 0.5 mg PO BID PRN #60 tablet PRN Reason: Anxiety Metoprolol Succinate [Toprol Xl] 50 mg PO DAILY #30 tab traMADol HCL [Ultram] 50 mg PO Q4H PRN #120 tablet PRN Reason: Severe Pain Warfarin Sodium [Coumadin] 5 mg PO DAILY@1700 #30 tablet Complete Home Medications List: Complete Home Medication List: Gabapentin [Neurontin] 400 mg PO TID 04/03/17 Lisinopril [Zestril] 30 mg PO DAILY 04/03/17 Simvastatin 20 mg PO DAILY 04/03/17 metFORMIN HCL [Metformin HCl ER] 1,000 mg PO BID 04/03/17 ALPRAZolam [Xanax] 0.5 mg PO BID PRN #60 tablet 04/08/17 Acetaminophen [Tylenol] 1,000 mg PO Q6H PRN #120 tablet 04/08/17 Metoprolol Succinate [Toprol Xl] 50 mg PO DAILY #30 tab 04/08/17 Warfarin Sodium [Coumadin] 5 mg PO DAILY@1700 #30 tablet 04/08/17 traMADol HCL [Ultram] 50 mg PO Q4H PRN #120 tablet 04/08/17 Amb Orders for Discharge: Prothrombin Time Time Frame: 04/10/17, Facility: [facility], Location: Laboratory
[2017-04-08 13:06] VITALS: BP 162/92
== END 2017-04-08 13:50 | disposition short-term general hospital (02) | DRG 482 ==
LOC: ER 06:33 → MS 07:21
PROVIDERS: ADMIT Family Medicine; ATTEND Family Medicine
PROC: 0QH734Z Insertion of Internal Fixation Device into Left Upper Femur, Percutaneous Approach (ICD-10-PCS; principal; 2017-04-03 11:30)
PROC: 30263N1 (ICD-10-PCS; 2017-04-04)
DX: S72.002A Fracture of unspecified part of neck of left femur, initial encounter for closed fracture (principal); W01.0XXA Fall on same level from slipping, tripping and stumbling without subsequent striking against object, initial encounter; Y92.008 Other place in unspecified non-institutional (private) residence as the place of occurrence of the external cause; R33.9 Retention of urine, unspecified; T88.7XXA Unspecified adverse effect of drug or medicament, initial encounter; T40.0X5A Adverse effect of opium, initial encounter; Y92.239 Unspecified place in hospital as the place of occurrence of the external cause; I12.9 Hypertensive chronic kidney disease with stage 1 through stage 4 chronic kidney disease, or unspecified chronic kidney disease; E11.22 Type 2 diabetes mellitus with diabetic chronic kidney disease; N18.3 Chronic kidney disease, stage 3 (moderate); E78.5 Hyperlipidemia, unspecified; Z79.82 Long term (current) use of aspirin; Z79.84 Long term (current) use of oral hypoglycemic drugs
CPT/HCPCS: 27245; 36415; 70450; 73552; 76000; 80048; 80053; 81001; 84484; 85025; 85027; 85610; 86850; 86900; 87086; 93005; 96374; 97110; 97161; 97165; 97530; 97535; 99284; P9016